=== PATIENT | female | born 1995 | race American Indian/Alaskan Native ===

== ENCOUNTER 2017-12-18 07:05 | Emergency (ER) | payer MEDICAID ==
[2017-12-18] MEDS ORDERED: PEPCID PO ONE (08:01)
[2017-12-18] MEDS ORDERED: DELTASONE PO ONE (08:01)
[2017-12-18] MEDS ORDERED: BENADRYL PO ONE (08:02)
--- NOTE | 2017-12-18 08:05 | Emergency Department Report ---
ED Allergic Reaction HPI - General Chief complaint: Allergic Reaction Stated complaint: POSSIBLE ALLERGIC REACTION TO UNK Time Seen by Provider: 12/18/17 08:01 Source: patient Mode of arrival: Ambulatory Limitations: No Limitations - History of Present Illness Initial Comments: 22-year-old female past medical history intermittent urticaria and sensitive skin as per patient presents with complaint of 3 weeks of intermittent hives. Patient denies any difficulty breathing has no drooling dyspnea or trismus on exam. Speaking in full sentences. Denies any facial swelling or tongue swelling. States she does have an allergy to peanuts but to her knowledge has not consumed anything with peanuts directly in it. Denies use of any new cosmetics, creams or soaps. Patient states that she did recently move into a house that is new. Denies any bug bites or bug infestation at home. Patient states she sometimes reacts to animal dander. Patient does have some active hives on extremities at this time. States it has been worse over the last 3 weeks and waxes and wanes intermittently. Does complain of slightly itchy skin at this time. Denies any recent new medication use or recent travel. Denies any fevers or chills or any shortness of breath. MD Complaint: allergic reaction, hives Onset/Timin -: week(s) Exposure: unknown Symptoms: rash, itching Severity: mild - Related Data Previous Rx's Medication Instructions Recorded Last Taken Type Famotidine [Pepcid] 20 mg PO BID PRN #30 tablet 12/18/17 Unknown Rx Hydrocortisone 1% [Hydrocortisone 1 applicatio TP TID PRN #1 tube 12/18/17 Unknown Rx 1% CREAM] Hydroxyzine HCl 25 mg PO Q8H PRN #25 tablet 12/18/17 Unknown Rx Loratadine [Claritin] 10 mg PO DAILY #30 tablet 12/18/17 Unknown Rx Prednisone [predniSONE 10 mg 10 mg PO .TAPER #1 tab.ds.pk 12/18/17 Unknown Rx (6-Day Pack, 21 Tabs)] Allergies Allergy/AdvReac Type Severity Reaction Status Date / Time peanuts Allergy Rash Uncoded 12/18/17 07:23 ED Review of Systems ROS: Stated complaint: POSSIBLE ALLERGIC REACTION TO UNK Other details as noted in HPI Constitutional: denies: chills, fever Eyes: denies: eye pain, eye discharge, vision change ENT: denies: ear pain, throat pain Respiratory: denies: cough, shortness of breath, wheezing Cardiovascular: denies: chest pain, palpitations Endocrine: no symptoms reported Gastrointestinal: denies: abdominal pain, nausea, diarrhea Genitourinary: denies: urgency, dysuria, discharge Musculoskeletal: denies: back pain, joint swelling, arthralgia Skin: as per HPI, pruritus. denies: rash, lesions Neurological: denies: headache, weakness, paresthesias Psychiatric: denies: anxiety, depression Hematological/Lymphatic: denies: easy bleeding, easy bruising ED Past Medical Hx - Past Medical History Previous Medical History?: Yes Additional medical history: Vaginal delivery x 3 - Surgical History Past Surgical History?: No - Social History Smoking Status: Never Smoker Substance Use Type: Alcohol - Medications Home Medications: Home Medications Medication Instructions Recorded Confirmed Last Taken Type Famotidine [Pepcid] 20 mg PO BID PRN #30 tablet 12/18/17 Unknown Rx Hydrocortisone 1% [Hydrocortisone 1 applicatio TP TID PRN #1 tube 12/18/17 Unknown Rx 1% CREAM] Hydroxyzine HCl 25 mg PO Q8H PRN #25 tablet 12/18/17 Unknown Rx Loratadine [Claritin] 10 mg PO DAILY #30 tablet 12/18/17 Unknown Rx Prednisone [predniSONE 10 mg 10 mg PO .TAPER #1 tab.ds.pk 12/18/17 Unknown Rx (6-Day Pack, 21 Tabs)] ED Physical Exam - General Limitations: No Limitations General appearance: alert, in no apparent distress - Head Head exam: Present: atraumatic, normocephalic - Eye Eye exam: Present: normal appearance - ENT ENT exam: Present: mucous membranes moist - Neck Neck exam: Present: normal inspection - Respiratory Respiratory exam: Present: normal lung sounds bilaterally. Absent: respiratory distress - Cardiovascular Cardiovascular Exam: Present: regular rate, normal rhythm. Absent: systolic murmur, diastolic murmur, rubs, gallop - GI/Abdominal GI/Abdominal exam: Present: soft, normal bowel sounds - Extremities Exam Extremities exam: Present: normal inspection - Back Exam Back exam: Present: normal inspection - Neurological Exam Neurological exam: Present: alert, oriented X3 - Psychiatric Psychiatric exam: Present: normal affect, normal mood - Skin Skin exam: Present: warm, dry, intact, normal color, urticaria. Absent: rash - Expanded Skin Exam Expanded Distribution of rash: abdomen, RUE, LUE, RLE, LLE Description of rash: Present: urticarial ED Course Vital Signs 12/18/17 07:24 Temperature 98.3 F Pulse Rate 71 Respiratory 18 Rate Blood Pressure 110/57 O2 Sat by Pulse 99 Oximetry ED Medical Decision Making - Medical Decision Making A/P: Urticaria 1-prednisone pack, Pepcid, hydroxyzine when necessary 2-I referred patient to [facility] and primary care 3-no clinical signs of angioedema at this time Critical care attestation.: If time is entered above; I have spent that time in minutes in the direct care of this critically ill patient, excluding procedure time. ED Disposition Clinical Impression: Urticaria Disposition: TO HOME OR SELFCARE Is pt being admited?: No Does the pt Need Aspirin: No Condition: Stable Instructions: Urticaria (ED), Itchy Skin (ED) Prescriptions: Famotidine [Pepcid] 20 mg PO BID PRN #30 tablet PRN Reason: Allergic Reaction Hydrocortisone 1% [Hydrocortisone 1% CREAM] 1 applicatio TP TID PRN #1 tube PRN Reason: Allergic Reaction Hydroxyzine HCl 25 mg PO Q8H PRN #25 tablet PRN Reason: Allergic Reaction Loratadine [Claritin] 10 mg PO DAILY #30 tablet Prednisone [predniSONE 10 mg (6-Day Pack, 21 Tabs)] 10 mg PO .TAPER #1 tab.ds.pk Referrals: [facility] [Provider Group] - 3-5 Days [facility] [Provider Group] - 3-5 Days Forms: Work/School Release Form(ED) Time of Disposition: 08:05
[2017-12-18 09:01] VITALS: BP 98/60
== END 2017-12-18 09:00 | disposition home or self-care (01) ==
LOC: ED 07:05
DX: L50.9 Urticaria, unspecified (principal); Z91.010 Allergy to peanuts
CPT/HCPCS: 99282; J7512